=== PATIENT | male | born 1970 | race Caucasian/White ===

== ENCOUNTER 2020-10-11 11:25 | Emergency (ER) | payer MEDICAID, OTHER ==
[2020-10-11] MEDS ORDERED: Metoclopramide 10 MG/2 ML SDV IVPUSH ONE (12:26)
[2020-10-11] MEDS ORDERED: HYDROmorphone 0.5 MG/0.5 ML Syringe IVPUSH ONE (12:27)
[2020-10-11] MEDS ORDERED: cefTRIAXone 2 GM in Sodium Chloride 0.9% 100 ML IV ONE (12:27)
--- NOTE | 2020-10-11 12:29 | EDM.PDOC ---
ED HPI GENERAL MEDICAL PROBLEM - General Chief Complaint: Skin Complaint Stated Complaint: ABSCESS ON BUTTOCK Time Seen by Provider: 10/11/20 12:14 Source of Information: Reports: Patient, Family (spouse) History Limitations: Reports: No Limitations - History of Present Illness INITIAL COMMENTS - FREE TEXT/NARRATIVE: 50-year-old male presents to the ED for evaluation of an abscess on his right buttock. He states has been brewing for about 4 days. States it opened up and drained some pus last night and again a little bit this morning. To the point that he cannot sit at all on the right side. He is starting to feel ill with fever chills nausea and flulike symptoms. He has not eaten at all today yet. Pain is rated as an 8 out of 10. Not known to have any previous problems with MRSA. He is not diabetic. Onset: Gradual Onset Date: 10/08/20 Duration: Day(s):, Getting Worse Location: Reports: Other (Development of an abscess right buttock) Quality: Reports: Ache, Throbbing Severity: Moderate (8 out of 10) Improves with: Reports: None Worsens with: Reports: Other (Walking and trying to sit.) Context: Denies: Activity, Exercise, Lifting, Sick Contact, Trauma, Other Associated Symptoms: Reports: Fever/Chills (Nausea without vomiting perhaps low- grade fever and chills the first day of illness not so much the last 2 days.), Loss of Appetite, Malaise, Nausea/Vomiting, Rash (At abscess development right buttock cheek with draining purulent material). Denies: Cough, cough w sputum Right Buttock Pain Score (Numeric/FACES): 5 - Related Data Allergies Allergy/AdvReac Type Severity Reaction Status Date / Time Penicillins Allergy Severe Rash Verified 10/11/20 11:56 Home Meds: Home Meds Cefdinir [Omnicef] 300 mg PO BID #16 cap 10/11/20 [Rx] Ondansetron [Zofran] 4 mg BUCCAL Q6H PRN #8 tab 10/11/20 [Rx] metroNIDAZOLE [Flagyl] 500 mg PO Q8H #21 tab 10/11/20 [Rx] oxyCODONE HCl/Acetaminophen [Percocet 5-325 mg Tablet] 1 - 2 each PO Q4H PRN #20 tablet 10/11/20 [Rx] Past Medical History Musculoskeletal History: Reports: Back Pain, Chronic, Other (See Below) Other Musculoskeletal History: fused lower back - Past Surgical History Other HEENT Surgeries/Procedures: 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 Denies: Chills HEENT: Reports: No Symptoms Respiratory: Reports: Shortness of Breath, Wheezing, Cough, Sputum (Folkers cough occasional janelle sputum production). Denies: Pleuritic Chest Pain (Occasional wheezing) Cardiovascular: Reports: No Symptoms Endocrine: Reports: Fatigue GI/Abdominal: Reports: Decreased Appetite, Nausea : Reports: No Symptoms, Other (No nocturia) Musculoskeletal: Reports: Joint Pain (Knees hips low back and neck hurt at times) Skin: Reports: No Symptoms Neurological: Reports: No Symptoms (Until the last 4 days with development of an abscess right buttock) Psychiatric: Reports: No Symptoms ED EXAM, SKIN/RASH Exam: See Below Exam Limited By: No Limitations General Appearance: Alert, WD/WN, Anxious, Mild Distress, Other (Temperature is 36.4 degrees with a heart rate of 61 and sinus. Respiratory is 20 with O2 sats of 99% room air. BP is 145/83.) Eye Exam: Bilateral Eye: Normal Inspection (No blepharal pallor or scleral icterus.), PERRL Throat/Mouth: Normal Inspection, Normal Lips, Normal Oropharynx, Other (Tongue is mildly dry and coated.) Respiratory/Chest: No Respiratory Distress, Lungs Clear, Normal Breath Sounds, No Accessory Muscle Use. No: Respiratory Distress, Wheezing Cardiovascular: Normal Peripheral Pulses, Regular Rate, Rhythm, No Edema, No Gallop, No Murmur, No Rub Peripheral Pulses: 2+: Posterior Tibial (L), Posterior Tibial (R), Dorsalis Pedis (L), Dorsalis Pedis (R), 3+: Carotid (L), Carotid (R) GI/Abdominal: Normal Bowel Sounds, Soft, Non-Tender, No Organomegaly, No Mass, Pelvis Stable, Other (No surgical scars) (Male) Exam: Deferred Back Exam: Normal Inspection, Full Range of Motion. No: CVA Tenderness (L), CVA Tenderness (R) Extremities: Normal Inspection, Normal Range of Motion, Non-Tender, No Pedal Edema Neurological: Alert, Oriented, CN II-XII Intact, Normal Cognition. No: Normal Gait Psychiatric: Normal Affect, Normal Mood Skin: Warm, Dry, Intact, Erythema (She has erythema of the entire right buttock cheek with central large carbuncle draining in 3 different areas of purulent material.), Increased Warmth, Other (The area is exquisitely tender to touch. Area of drainage is approximate the size of a $0.50 piece. Erythema is approximately 20 cm x 20 cm in a circular fashion.) Location, Skin: Other (Right buttock) Course - Vital Signs Last Recorded V/S: Last Vital Signs Temp 36.4 C 10/11/20 12:01 Pulse 64 10/11/20 16:11 Resp 14 10/11/20 16:11 BP 145/83 H 10/11/20 12:01 Pulse Ox 97 10/11/20 16:11 - Orders/Labs/Meds Orders: Active Orders 24 hr Category Date Time Status BLOOD CULTURE [MREF] Stat Lab 10/11/20 13:04 Received BLOOD CULTURE [MREF] Stat Lab 10/11/20 13:12 Received Dextrose 5%-0.9% NaCl [Dextrose 5%-Normal Saline] 1,000 Med 10/11/20 12:30 Active ml IV ASDIRECTED Blood Culture x2 Reflex Set [OM.PC] Stat Oth 10/11/20 12:26 Ordered Medication Orders Dextrose/Sodium Chloride (Dextrose 5%-Normal Saline) 1,000 mls @ 500 mls/hr IV ASDIRECTED DRAKE Last Admin: 10/11/20 13:12 Dose: 500 mls/hr Documented by: BRENDAN Labs: Laboratory Tests 10/11/20 10/11/20 10/11/20 Range/Units 13:04 13:04 13:42 WBC 14.66 H (4.23-9.07) K/mm3 RBC 5.19 (4.63-6.08) M/mm3 Hgb 15.8 (13.7-17.5) gm/dl Hct 47.1 (40.1-51.0) % MCV 90.8 (79.0-92.2) fl MCH 30.4 (25.7-32.2) pg MCHC 33.5 (32.2-35.5) g/dl RDW Std Deviation 44.8 H (35.1-43.9) fL Plt Count 218 (163-337) K/mm3 MPV 10.5 (9.4-12.3) fl Neut % (Auto) 83.0 H (34.0-67.9) % Lymph % (Auto) 8.4 L (21.8-53.1) % [place] % (Auto) 7.9 (5.3-12.2) % Eos % (Auto) 0.2 L (0.8-7.0) Baso % (Auto) 0.2 (0.1-1.2) % Neut # (Auto) 12.17 H (1.78-5.38) K/mm3 Lymph # (Auto) 1.23 L (1.32-3.57) K/mm3 [place] # (Auto) 1.16 H (0.30-0.82) K/mm3 Eos # (Auto) 0.03 L (0.04-0.54) K/mm3 Baso # (Auto) 0.03 (0.01-0.08) K/mm3 Sodium 144 (136-145) mEq/L Potassium 3.5 (3.5-5.1) mEq/L Chloride 106 (98-107) mEq/L Carbon Dioxide 28 (21-32) mEq/L Anion Gap 13.5 (5-15) BUN 12 (7-18) mg/dL Creatinine 1.2 (0.7-1.3) mg/dL Est Cr Clr Drug Dosing 79.94 mL/min Estimated GFR (MDRD) > 60 (>60) mL/min BUN/Creatinine Ratio 10.0 L (14-18) Glucose 106 H (70-99) mg/dL Calcium 8.8 (8.5-10.1) mg/dL Magnesium 2.0 (1.8-2.4) mg/dL Total Bilirubin 0.6 (0.2-1.0) mg/dL AST 17 (15-37) U/L ALT 25 (16-63) U/L Alkaline Phosphatase 89 (46-116) U/L C-Reactive Protein 8.6 H* (<1.0) mg/dL Total Protein 7.7 (6.4-8.2) g/dl Albumin 3.4 (3.4-5.0) g/dl Globulin 4.3 gm/dL Albumin/Globulin Ratio 0.8 L (1-2) SARS-CoV-2 RNA (PRIYANKA) Negative (NEGATIVE) Meds: Medications Generic Name Dose Route Start Last Admin Trade Name Freq PRN Reason Stop Dose Admin Dextrose/Sodium Chloride 1,000 mls @ 500 mls/hr 10/11/20 12:30 10/11/20 13:12 Dextrose 5%-Normal Saline IV 500 mls/hr ASDIRECTED DRAKE Administration Discontinued Medications Generic Name Dose Route Start Last Admin Trade Name Freq PRN Reason Stop Dose Admin Hydromorphone HCl 0.5 mg 10/11/20 12:27 10/11/20 13:10 Hydromorphone 0.5 Mg/0.5 Ml Syringe IVPUSH 10/11/20 12:28 0.5 mg ONETIME ONE Administration Ceftriaxone Sodium 2 gm/ 100 mls @ 200 mls/hr 10/11/20 12:27 10/11/20 13:12 Sodium Chloride IV 10/11/20 12:56 200 mls/hr ONETIME ONE Administration Metronidazole 500 mg/ Premix 100 mls @ 100 mls/hr 10/11/20 14:21 10/11/20 15:05 IV 10/11/20 15:20 100 mls/hr ONETIME ONE Administration Lidocaine/Epinephrine 20 ml 10/11/20 15:17 10/11/20 16:02 Lidocaine 1% With Epinephrine 1:100,000 20 Ml Mdv INJECT 10/11/20 15:18 Not Given ONETIME ONE Lidocaine/Epinephrine Confirm 10/11/20 15:31 10/11/20 16:02 Lidocaine 1% With Epinephrine 1:100,000 10 Ml Mdv Administered 10/11/20 15:32 10 ml Dose Administration 10 ml .ROUTE .STK-MED ONE Metoclopramide HCl 7.5 mg 10/11/20 12:26 10/11/20 13:09 Metoclopramide 10 Mg/2 Ml Sdv IVPUSH 10/11/20 12:27 7.5 mg ONETIME ONE Administration Midazolam HCl 2 mg 10/11/20 15:17 10/11/20 15:44 Midazolam 1 Mg/Ml 2 Ml Sdv IVPUSH 10/11/20 15:18 2 mg ONETIME ONE Administration Propofol 220 mg 10/11/20 15:17 10/11/20 16:01 Propofol 200 Mg/20 Ml Sdv IVPUSH 10/11/20 15:18 Not Given ONETIME ONE Propofol Confirm 10/11/20 15:32 10/11/20 15:44 Propofol 200 Mg/20 Ml Sdv Administered 10/11/20 15:33 150 mg Dose Administration 200 mg .ROUTE .[facility] ONE - Radiology Interpretation Free Text/Narrative:: 50-year-old male presents to the ED for evaluation of an abscess on his right buttock. It has been brewing for the last 4 to 5 days. He has some signs and symptoms of systemic illness. On examination most of his right buttock is taken up by a large erythematous area with a central carbuncle draining in 3-4 different areas of mild seropurulent material. There is marked induration and thickening suggesting underlying abscess and exquisite tenderness to touch. In my opinion this abscess needs to be opened and drained surgically. Plan he will have routine labs performed. IV will be D5 normal saline at 250 mils per hour since he has not ate or drink yet today. He will be given Rocephin 2 g IV as soon as blood cultures x2 been collected. Given Dilaudid 0.5 mg IV for pain relief with Reglan 7.5 mg IV. I will ask on-call surgeon to see him in consultation with a view to incision and drainage. - Re-Assessments/Exams Free Text/Narrative Re-Assessment/Exam: 10/11/20 13:17 have been collected but values are not yet available. I did speak to on-call surgeon Dr. Gorman-And he will see the patient in consultation. We will get a Covid test on this patient as there is a good chance he will need to go to the operating room for incision and drainage of this large abscess. 10/11/20 13:49 White count is elevated at 14.66 with a left shift of 83% neutrophils. Hemoglobin is 15.8 with hematocrit of 47.1 platelet count is 218,000 10/11/20 14:18 Chemistry shows a sodium of 144 and a potassium of 3.5. Chloride is 106 with a bicarb of 28. Anion gap is 13.5. BUN is 12 with a creatinine 1.2 and a GFR greater than 60. Glucose is 106. Calcium is 8.8. Magnesium is 2.0. Liver function is normal. C-reactive protein is elevated at 8.6. Total protein 7.7 with an albumin fraction of 3.4. COVID-19 screen is pending. 10/11/20 14:28 Dr. Gorman is here to see the patient in consultation. Labs are back but COVID-19 is still pending. 10/11/20 16:20 Patient underwent procedural sedation using propofol for a total of 150 mg after receiving 2 mg of Versed IV. Propofol was administered by mt with initial 40 mg bolus followed by a second 40 mg bolus followed by 20 mg boluses as needed to provide sedation for incision and drainage of large abscess right buttock. The surgical procedure was performed by Dr. Gorman. The wound was packed and patient will be seen in the clinic on Monday or this week. 10/11/20 17:14 patient was discharged to home. He will use Flagyl 500 mg by mouth 3 times daily for 1 week. He will use Omnicef 300 mg twice daily for 8 days. Zofran 4 mg sublingual every 4 to 6 hours as needed for nausea relief. Percocet tabs 5/325 mg strength 1 or 2 every 4-6 hours as necessary for pain relief. He will follow up with in the clinic on Monday or this week. Note given to excuse him from work until at least Monday, October 17. Departure - Departure Time of Disposition: 17:15 Disposition: Home, Self-Care 01 Condition: Fair Clinical Impression: Abscess of right buttock, Encounter for incision and drainage procedure - Discharge Information *PRESCRIPTION DRUG MONITORING PROGRAM REVIEWED*: Not Applicable Prescriptions: metroNIDAZOLE [Flagyl] 500 mg PO Q8H #21 tab Cefdinir [Omnicef] 300 mg PO BID #16 cap oxyCODONE HCl/Acetaminophen [Percocet 5-325 mg Tablet] 1 - 2 each PO Q4H PRN #20 tablet PRN Reason: pain relief. Ondansetron [Zofran] 4 mg BUCCAL Q6H PRN #8 tab PRN Reason: nausea or vomiting Instructions: Skin Abscess, [id number], Moderate Conscious Sedation, Adult, Care After Referrals: PCP,None [Primary Care Provider] - Forms: ED Department Discharge, ED Return to Work/School Form Additional Instructions: Evaluation in the emergency room today in regards to a large abscess or carbuncle that is developed on your right buttock cheek. The infection under the skin which we call cellulitis has spread to involve almost the entire buttock cheek. Lab test prove that your white blood cell count was elevated and there is evidence of developing systemic infection. You were treated with intravenous antibiotics Rocephin 2 g intravenously and Flagyl 500 mg IV. Under sedation using propofol administered by mt ,Dr. Gorman --on-call surgeon incision incised and drained the abscess and packed the wound. It was irrigated while you were asleep. You will need to continue antibiotics Flagyl 500 mg 3 times daily for the next week. You should take 1 tablet around bedtime tonight with some food in your stomach. Similarly antibiotic Omnicef is 300 mg tablet twice daily for 8 days and first tablet should be taken tomorrow morning. May use Motrin 600 mg every 6 hours as needed for pain relief. Percocet tabs 5/325 mg tablets 1 or 2 every 4-6 hours with some food in your stomach for pain not controlled by Motrin alone. If any nausea occurs may use Zofran 4 mg under the tongue to control nausea and stop vomiting if it occurs. Dr. Gorman wishes to see you in clinic on Monday or this week. Please phone when the clinic opens on Monday. His phone number is [phone] to arrange an appointment. Tell them that you had a surgical procedure performed by him on the weekend. Sepsis Event Note (ED) - Focused Exam Vital Signs: Vital Signs Temp Pulse Resp BP Pulse Ox 10/11/20 16:11 64 14 97 10/11/20 12:01 36.4 C 61 20 145/83 H 99 - My Orders Last 24 Hours: My Active Orders 10/11/20 12:26 Blood Culture x2 Reflex Set [OM.PC] Stat 10/11/20 12:30 Dextrose 5%-0.9% NaCl [Dextrose 5%-Normal Saline] 1,000 ml IV ASDIRECTED 10/11/20 13:04 BLOOD CULTURE [MREF] Stat 10/11/20 13:12 BLOOD CULTURE [MREF] Stat - Assessment/Plan Last 24 Hours: My Active Orders 10/11/20 12:26 Blood Culture x2 Reflex Set [OM.PC] Stat 10/11/20 12:30 Dextrose 5%-0.9% NaCl [Dextrose 5%-Normal Saline] 1,000 ml IV ASDIRECTED 10/11/20 13:04 BLOOD CULTURE [MREF] Stat 10/11/20 13:12 BLOOD CULTURE [MREF] Stat ED PROCEDURAL SEDATION - Pre Procedure Indications: other (Incision and drainage of abscess) Preparations: procedure explained, consent signed, oxygen, continuous pulse oximeter, suction, continuous cardiac rehab nurse, constant attendance - Physical Exam Airway: normal anatomy Cardiovascular: normal heart sounds Respiratory: normal breath sounds Neurological: alert, responsive, NAD Mallampati Classification: 1 (soft palate, anterior/posterior tonsillar pillars, uvula visible) - Procedure Sedation Procedural Sedation Start Date: 10/11/20 Procedural Sedation Start Time: 15:44 Sedation: versed (parenteral) (2 mg), propofol (150 mg in total) ASA Classification: 1 (Normal healthy patient) - Intra Procedure Condition during procedure: moderately sedated, vital signs stable, oxygenation stable Complications: none Reversal: none - Post Procedure Procedural Sedation End Date: 10/22/20 Procedural Sedation End Time: 16:05 Condition after procedure: alert, responds to verbal stimuli - Discharge Condition Patient returned to pre-procedure baseline: Yes Alert prior to discharge: Yes Ambulatory with assistance: Yes Vital signs normal: Yes Time spent with sedated patient: 20 min
[2020-10-11] MEDS ORDERED: Dextrose 5%-0.9% NaCl 1,000 ML IV SCH (12:30)
[2020-10-11] MEDS ORDERED: metroNIDAZOLE/Normal Saline 500 MG in Premix Bag 1 BAG IV ONE (14:21)
[2020-10-11] MEDS ORDERED: Midazolam 1 MG/ML 2 ML SDV IVPUSH ONE (15:17)
[2020-10-11] MEDS ORDERED: Lidocaine 1% with EPINEPHrine 1:100,000 20 ML MDV INJECT ONE (15:17)
[2020-10-11] MEDS ORDERED: Propofol 200 MG/20 ML SDV IVPUSH ONE (15:17)
[2020-10-11] MEDS ORDERED: Lidocaine 1% with EPINEPHrine 1:100,000 10 ML MDV ONE (15:31)
[2020-10-11] MEDS ORDERED: Propofol 200 MG/20 ML SDV ONE (15:32)
--- NOTE | 2020-10-11 16:27 | PCM.CONS ---
H&P History of Present Illness - General Date of Service: 10/11/20 Source of Information: Patient History Limitations: Reports: No Limitations - History of Present Illness Initial Comments - Free Text/Narative: Patient developed swelling and pain on the right mid buttock 3 days ago. This was came to a head on Monday 10/09 and was popped by patient's and the patient himself that day with purulent drainage. It it quickly filled up again and pain continued to worsen. Patient reports chills but no fevers. He eventually presented to the ED and I was asked to evaluate this patient. Onset of Symptoms: Reports: Gradual Duration of Symptoms: Reports: Day(s): (3), Getting Worse Location: Reports: Other (buttock) Quality: Reports: Ache Severity: Severe Improves with: Reports: Immobilization Worsens with: Reports: Movement Context: Reports: Other (infection) Right Buttock Pain Score (Numeric/FACES): 5 - Related Data Allergies/Adverse Reactions: Allergies Allergy/AdvReac Type Severity Reaction Status Date / Time Penicillins Allergy Severe Rash Verified 10/11/20 11:56 Home Medications: Home Meds Cefdinir [Omnicef] 300 mg PO BID #16 cap 10/11/20 [Rx] Ondansetron [Zofran] 4 mg BUCCAL Q6H PRN #8 tab 10/11/20 [Rx] metroNIDAZOLE [Flagyl] 500 mg PO Q8H #21 tab 10/11/20 [Rx] oxyCODONE HCl/Acetaminophen [Percocet 5-325 mg Tablet] 1 - 2 each PO Q4H PRN #20 tablet 10/11/20 [Rx] Past Medical History Musculoskeletal History: Reports: Back Pain, Chronic, Other (See Below) Other Musculoskeletal History: fused lower back - Past Surgical History Other HEENT Surgeries/Procedures: 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 Musculoskeletal Surgical History: Reports: Hip Replacement Social & Family History - Tobacco Use Tobacco Use Status *Q: Current Every Day Tobacco User Years of Tobacco use: 44 Packs/Tins Daily: 0.1 - Caffeine Use Caffeine Use: Reports: Energy Drinks, Soda - Recreational Drug Use Recreational Drug Use: No - Living Situation & Occupation Living situation: Reports: Occupation: Unemployed H&P Review of Systems - Review of Systems: Review Of Systems: See Below General: Reports: Chills Pulmonary: Reports: No Symptoms Cardiovascular: Reports: No Symptoms Gastrointestinal: Reports: No Symptoms Genitourinary: Reports: No Symptoms Musculoskeletal: Reports: No Symptoms Skin: Reports: Erythema, Other (drainage, right buttock) Exam - Exam Exam: See Below - Vital Signs Vital Signs: Last Vital Signs Temp 97.5 F 10/11/20 12:01 Pulse 64 10/11/20 16:11 Resp 14 10/11/20 16:11 BP 145/83 H 10/11/20 12:01 Pulse Ox 97 10/11/20 16:11 Weight: 79.577 kg - Exam General: Alert, Oriented, Cooperative Lungs: Clear to Auscultation, Normal Respiratory Effort Cardiovascular: Regular Rate, Regular Rhythm, Normal S1, Normal S2 Skin: Wound (right buttock, 10 cm area of induration with drainage in the middle.) - Patient Data Lab Results Last 24 hrs: Laboratory Results - last 24 hr 10/11/20 10/11/20 10/11/20 Range/Units 13:04 13:04 13:42 WBC 14.66 H (4.23-9.07) K/mm3 RBC 5.19 (4.63-6.08) M/mm3 Hgb 15.8 (13.7-17.5) gm/dl Hct 47.1 (40.1-51.0) % MCV 90.8 (79.0-92.2) fl MCH 30.4 (25.7-32.2) pg MCHC 33.5 (32.2-35.5) g/dl RDW Std Deviation 44.8 H (35.1-43.9) fL Plt Count 218 (163-337) K/mm3 MPV 10.5 (9.4-12.3) fl Neut % (Auto) 83.0 H (34.0-67.9) % Lymph % (Auto) 8.4 L (21.8-53.1) % [place] % (Auto) 7.9 (5.3-12.2) % Eos % (Auto) 0.2 L (0.8-7.0) Baso % (Auto) 0.2 (0.1-1.2) % Neut # (Auto) 12.17 H (1.78-5.38) K/mm3 Lymph # (Auto) 1.23 L (1.32-3.57) K/mm3 [place] # (Auto) 1.16 H (0.30-0.82) K/mm3 Eos # (Auto) 0.03 L (0.04-0.54) K/mm3 Baso # (Auto) 0.03 (0.01-0.08) K/mm3 Sodium 144 (136-145) mEq/L Potassium 3.5 (3.5-5.1) mEq/L Chloride 106 (98-107) mEq/L Carbon Dioxide 28 (21-32) mEq/L Anion Gap 13.5 (5-15) BUN 12 (7-18) mg/dL Creatinine 1.2 (0.7-1.3) mg/dL Est Cr Clr Drug Dosing 79.94 mL/min Estimated GFR (MDRD) > 60 (>60) mL/min BUN/Creatinine Ratio 10.0 L (14-18) Glucose 106 H (70-99) mg/dL Calcium 8.8 (8.5-10.1) mg/dL Magnesium 2.0 (1.8-2.4) mg/dL Total Bilirubin 0.6 (0.2-1.0) mg/dL AST 17 (15-37) U/L ALT 25 (16-63) U/L Alkaline Phosphatase 89 (46-116) U/L C-Reactive Protein 8.6 H* (<1.0) mg/dL Total Protein 7.7 (6.4-8.2) g/dl Albumin 3.4 (3.4-5.0) g/dl Globulin 4.3 gm/dL Albumin/Globulin Ratio 0.8 L (1-2) SARS-CoV-2 RNA (PRIYANKA) Negative (NEGATIVE) Result Diagrams: 10/11/20 13:04 10/11/20 13:04 Sepsis Event Note - Focused Exam Vital Signs: Vital Signs Temp Pulse Resp BP Pulse Ox 10/11/20 16:11 64 14 97 10/11/20 12:01 97.5 F 61 20 145/83 H 99 Consult PN Assessment/Plan Procedures: Procedures HEMOGLOBIN (03/06/19) ROUTINE VENIPUNCTURE (03/06/19) Problem List Initiated/Reviewed/Updated: No Plan: Right buttock abscess. This was drained in the ER. Patient will be discharged on PO Omnicef and flagyl. He will pack the wound with 1/2 inch iodoform gauze once daily. Follow up with me in clinic in 1 week for w ound check.
--- NOTE | 2020-10-13 10:36 | PROC ---
DATE OF OPERATION: 10/11/2020 SURGEON: Ej Gorman MD PREOPERATIVE DIAGNOSIS: Right buttock abscess. POSTOPERATIVE DIAGNOSIS: Right buttock abscess. OPERATION PERFORMED: Incision, drainage and excisional debridement of right buttock abscess. Size 3 cm diameter, x 3 cm depth ANESTHESIA: MAC and Local - 1% Lidocaine with epinephrine 1:100,000. ESTIMATED BLOOD LOSS: Minimal. ANESTHESIA: Monitored anesthesia care. INDICATION AND CONSENT: The patient is a 50-year-old male who developed infection and drainage of the pus on the right buttock. The patient stayed at home, but this worsened and decided to come to the emergency department today. Due to the size of the area that was infected, I was asked to come and see the patient. I saw the patient and recommended incision and drainage of the area. We discussed risks, benefits, and alternatives, and informed consent was obtained. DETAILS OF PROCEDURE: The patient was taken to the procedure room and was placed in the bed. Emergency room doctor, Dr. Bose performed sedation and we used local anesthetic with 1% lidocaine with epinephrine to inject around the wound after it had been cleaned and draped. Prior to starting the procedure, time-out was performed. Then using a #11 blade, the area of the fluctuance and drainage was opened with expression of some thick pus and devitalized material. Swabs for culture were taken. Then, loculations were broken bluntly with forceps and large amount of devitalized material as well as thick pus were removed and devitalized tissue was sharply removed with a scalpel. The wound was then rinsed with sterile saline and packed with 0.5-inch iodoform gauze and dressed with ABD pad. The patient tolerated the procedure well. The patient will continue to pack the wound at home. He will be discharged on oral antibiotics and see me in clinic in 1 week. Size of the debrided area was 3 cm in diameter and 3 cm in depth. MMODAL /[id number] MTDD
== END 2020-10-11 17:16 | disposition home or self-care (01) ==
LOC: JD.ED 11:25
DX: L02.31 Cutaneous abscess of buttock (principal); Z88.0 Allergy status to penicillin; Z72.0 Tobacco use; Z20.822 Contact with and (suspected) exposure to COVID-19
CPT/HCPCS: 10061; 36415; 80053; 83735; 85025; 86140; 87040; 87070; 87075; 87077; 87186; 87205; 87635; 96365; 96366; 96367; 96375; 99152; 99283; J0696; J1170; J2250; J2704; J2765; J3490; J7042; 99284; U0002